=== PATIENT | male | born 1960 | race Caucasian/White ===

== ENCOUNTER 2019-12-21 15:16 | Emergency (ER) | payer BC ==
[~2019-12-21] VITALS: Ht 182.9 cm; Wt 95.0 kg
[2019-12-21] MEDS ORDERED: SODIUM CHLORIDE 0.9% 1,000 ML IV ONE (16:03)
[2019-12-21] MEDS ORDERED: ACETAMINOPHEN 325MG TABLET PO STA (16:03)
[2019-12-21 16:38] LABS: BASOPHILS % 0.5 % (0.0-2.0); EOSINOPHILS % 0.1 % (0.0-5.0); HEMATOCRIT. 40.2 % (42.0-52.0); HEMOGLOBIN. 14.4 g/dL (14.0-18.0); LYMPHOCYTES % 13.9 % (20.0-50.0); MEAN CORPUSCULAR HEMOGLOBIN 31.9 pg (28.0-32.0); MEAN PLATELET VOLUME 9.9 fl (7.4-10.4); MONOCYTES % 9.3 % (2.0-8.0); NEUTROPHILS % 76.2 % (40.0-76.0); PLATELET 155 x1000/uL (130-400); RED BLOOD CELL COUNT 4.51 mill/uL (4.7-6.1); RED CELL DISTRIBUTION WIDTH 13.1 % (11.6-14.6)
[2019-12-21 16:40] LABS: CHLORIDE 106 mEq/L (98-107)
[2019-12-21 16:43] LABS: PROTHROMBIN TIME 10.8 sec (9.6-11.0)
[2019-12-21] MEDS ORDERED: POTASSIUM CHLORIDE 20MEQ TABLET SR PO ONE (17:00)
[2019-12-21 17:17] VITALS: BP 148/76
== END 2019-12-21 17:17 | disposition home or self-care (01) ==
LOC: ER 15:16
DX: U07.1 COVID-19 (principal); I10 Essential (primary) hypertension; F17.210 Nicotine dependence, cigarettes, uncomplicated
CPT/HCPCS: 36415; 71045; 80053; 83605; 84145; 84484; 85025; 85610; 87040; 99284; C9803; J7030; U0003